=== PATIENT | male | born 1990 | race Caucasian/White ===

== ENCOUNTER 2023-01-18 13:19 | Emergency (ER) | payer BC ==
[2023-01-18 13:43] VITALS: BP 136/87; PULSE 94; RESP 18; TEMP 98.2; BMI 29.2
[2023-01-18] MEDS ORDERED: KETOROLAC TROMETHAMINE 15 MG/ML VIAL IVPUSH ONE (15:32)
[2023-01-18] MEDS ORDERED: KETOROLAC TROMETHAMINE 15 MG/ML VIAL ONE (16:01)
[2023-01-18 16:08] LABS: BASO % 0.8 % (0-2.0); EOS % 2.9 % (0-4.5); HEMATOCRIT 48.9 % (35.4-49); HEMOGLOBIN 17.3 GM/dL (11.7-16.9); LYMPH % 27.8 % (8-40); MCHC 35.3 g/dl (32.0-35.9); MEAN CELL VOLUME 82.2 fl (80-96); MEAN PLT VOLUME 9.2 fl (7.5-11.1); MONO % 7.4 % (3.8-10.2); NEUT % 61.1 % (42.8-82.8); PLATELET COUNT 229 10^3/uL (134-434); RBC 5.95 M/mm3 (4.00-5.60); RDW 13.9 % (11.9-15.9); WHITE BLOOD COUNT 8.4 K/mm3 (4.0-10.0)
[2023-01-18 16:36] LABS: POTASSIUM 4.1 mmol/L (3.5-5.1)
[2023-01-18 16:39] LABS: BLOOD UREA NITROGEN 12.3 mg/dL (7-18); CALCIUM 9.4 mg/dL (8.5-10.1)
[2023-01-18 16:42] LABS: CREATININE 1.1 mg/dL (0.55-1.3)
[2023-01-18 16:44] LABS: BILIRUBIN,TOTAL 0.7 mg/dL (0.2-1); TOT PROT 7.5 g/dl (6.4-8.2)
== END 2023-01-18 17:51 | disposition home or self-care (01) ==
LOC: JER 13:19
PROC: 3E0333Z Introduction of Anti-inflammatory into Peripheral Vein, Percutaneous Approach (ICD-10-PCS; principal; 2023-01-18)
DX: R07.89 Other chest pain (principal)
CPT/HCPCS: 36415; 71046-TC-FY; 80053; 84484; 85025; 93005; 93010; 99285-25